=== PATIENT | female | born 1945 | race Caucasian/White ===

== ENCOUNTER 2022-08-29 09:11 | Outpatient (CLI) | payer MEDICARE | END 2022-08-29 09:12 | disposition home or self-care (01) | LOC: CSHMRI 09:11 | PROVIDERS: ATTEND Family Medicine | DX: M54.12 Radiculopathy, cervical region (principal); M47.812 Spondylosis without myelopathy or radiculopathy, cervical region | CPT/HCPCS: 72040; 72141 ==